=== PATIENT | female | born 1930 | race Caucasian/White ===

== ENCOUNTER 2016-08-26 10:58 | Emergency (ER) | payer OTHER, BC ==
[~2016-08-26] VITALS: Ht 167.6 cm; Wt 72.6 kg
--- NOTE | ~2016-08-26 | EKG ---
[address] [address] [place] [address] ELECTROCARDIOGRAM REPORT Name: CONCHIS UPTON [id number] Admission: 08/26/16 Attend Phys: Discharge: Date of : 28 Report #: [id number] THIS REPORT FOR: //name// 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: ryan : 1930 Requested By: Jeni Camarillo Order Number: [id number] MD: Nikhil Ruiz Measurements Intervals [place] Rate: 86 P: -46 NC: 194 QRS: -65 QRSD: 93 T: 71 QT: 393 QTc: 470 Interpretive Statements Sinus rhythm Atrial premature complexes Left anterior fascicular block Low voltage, extremity and precordial leads Electronically Signed On 08-26-2016 13:09:08 STRETCHER LEVELER OPERATOR HELPER by Nikhil Ruiz [email or web address] <ELECTRONICALLY SIGNED> By: Nikhil Ruiz MD 08/26/16 1309 1118 1118 Nikhil Ruiz MD /DENNY
[~2016-08-26 10:58] MED LIST: ASPIR 8181 MG PO; CEFUROXIME250 MG PO; DARVOCET-N 1001 EACH PO; MULTIVITAMINS1 EAC7 PO; OXYBUTYNIN 5 MG5 M2 PO; SEROQUEL 25 MG25 M1 PO
[2016-08-26] MEDS ORDERED: TRAMADOL 50 MG50 MG PO (11:04)
[2016-08-26] MEDS ORDERED: MYRBETRIQ25 MG PO (11:07)
[2016-08-26] MEDS ORDERED: IRON325 PO (11:08)
[2016-08-26] MEDS ORDERED: CLARITIN10 MG PO (11:08)
[2016-08-26] MEDS ORDERED: PRILOSEC 20 MG20 MG PO (11:08)
[2016-08-26] MEDS ORDERED: KEFLEX500 MG PO (11:08)
[2016-08-26] MEDS ORDERED: MAPAP325 MG PO (11:09)
[2016-08-26] MEDS ORDERED: ATIVAN0.5 MG PO (11:09)
[2016-08-26 11:27] LABS: ABSOLUTE NEUTROPHILS 4.8 thou/uL (1.4-8.2); BASOPHILS 0.9 % (0.0-2.0); EOSINOPHILS 1.8 % (0.0-3.0); HEMOGLOBIN 12.7 gm/dL (12.0-15.0); LYMPHOCYTES 22.7 % (24.0-44.0); MCH 29.4 pg (26.0-34.0); MCHC 33.6 % (28.0-37.0); MCV 87.6 fL (80.0-100.0); MONOCYTES 11.9 % (1.0-8.0); PLATELET COUNT 309 thou/uL (150-400); POLYS 62.7 % (36.0-66.0); RBC 4.33 mil/uL (4.20-5.00); RDW 15.1 % (10.5-14.5); WBC 7.7 thou/uL (4.0-11.0)
[2016-08-26 11:33] LABS: MANUAL DIFF NO
[2016-08-26 11:35] LABS: ANION GAP 9 mmol/L (7-16); BUN 16 mg/dL (7-18); CALCIUM 8.4 mg/dL (8.5-10.1); CHLORIDE 104 mmol/L (98-107); CO2 27 mmol/L (21-32); CREATININE 1.1 mg/dL (0.6-1.3); GLUCOSE 100 mg/dL (70-99); POTASSIUM 3.5 mmol/L (3.5-5.1); SODIUM 140 mmol/L (136-145)
[2016-08-26 11:41] LABS: TROPONIN-I < 0.04 ng/mL (<0.04-0.07)
[2016-09-18] MEDS ORDERED: TOPROL XL25 MG PO (02:45)
[2016-09-19] MEDS ORDERED: ATENOLOL 25MG T25 M1 PO (08:49)
[2016-09-19] MEDS ORDERED: ASPIR 8181 MG PO (08:50)
== END 2016-08-26 13:21 | disposition home or self-care (01) ==
LOC: ER 10:58
PROVIDERS: Emergency Medicine
DX: S09.90XA Unspecified injury of head, initial encounter (principal); F03.90 Unspecified dementia, unspecified severity, without behavioral disturbance, psychotic disturbance, mood disturbance, and anxiety; W17.89XA Other fall from one level to another, initial encounter; Y93.9 Activity, unspecified; Y92.9 Unspecified place or not applicable; Y99.9 Unspecified external cause status

== ENCOUNTER 2017-03-17 11:24 | Emergency (ER) | payer OTHER, BC ==
[~2017-03-17] VITALS: Ht 160 cm; Wt 67.0 kg
[~2017-03-17 11:24] MED LIST changes: +ATENOLOL 25MG T25 M1 PO; +ATIVAN0.5 MG PO; +CLARITIN10 MG PO; +IRON325 PO; +KEFLEX500 MG PO; +MAPAP325 MG PO; +MYRBETRIQ25 MG PO; +PRILOSEC 20 MG20 MG PO; +TOPROL XL25 MG PO; +TRAMADOL 50 MG50 MG PO
[2017-03-17] MEDS ORDERED: ZOLOFT25 MG PO (11:49)
== END 2017-03-17 13:03 | disposition home or self-care (01) ==
LOC: ER 11:24
DX: M25.562 Pain in left knee (principal); F03.90 Unspecified dementia, unspecified severity, without behavioral disturbance, psychotic disturbance, mood disturbance, and anxiety

== ENCOUNTER 2017-08-24 17:01 | Emergency (ER) | payer OTHER ==
[~2017-08-24] VITALS: Ht 162.6 cm; Wt 68.0 kg
[2017-08-24 17:01] VITALS: BP 167/63
[~2017-08-24 17:01] MED LIST changes: +ZOLOFT25 MG PO
== END 2017-08-24 18:01 | disposition home or self-care (01) ==
LOC: ER 17:01
DX: M25.561 Pain in right knee (principal); F03.90 Unspecified dementia, unspecified severity, without behavioral disturbance, psychotic disturbance, mood disturbance, and anxiety; Z98.890 Other specified postprocedural states

== ENCOUNTER 2017-08-30 17:40 | Emergency (ER) | payer OTHER ==
[~2017-08-30] VITALS: Ht 162.6 cm; Wt 63.5 kg
--- NOTE | ~2017-08-30 | EKG ---
[address] [address] ELECTROCARDIOGRAM REPORT Name: CONCHIS UPTON 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
[2017-08-30 19:09] VITALS: BP 166/44
== END 2017-08-30 19:10 ==
LOC: ER 17:40
DX: F41.0 Panic disorder [episodic paroxysmal anxiety] (principal); F03.90 Unspecified dementia, unspecified severity, without behavioral disturbance, psychotic disturbance, mood disturbance, and anxiety; Z90.49 Acquired absence of other specified parts of digestive tract

== ENCOUNTER 2017-11-14 18:48 | Inpatient (IN) | payer OTHER ==
[~2017-11-14] VITALS: Ht 152.4 cm; Wt 59.0 kg
--- NOTE | ~2017-11-14 | EKG ---
[address] [address] ELECTROCARDIOGRAM REPORT Name: CONCHIS UPTON Room #: 411-P ADM IN M.R.#: [id number] Admission: 11/14/17 Attend Phys: Giuseppe Burr MD Discharge: Date of : 29 Report #: [id number] THIS REPORT FOR: //name// [facility] ED Test Date: 2017-11-14 Test Time: 18:57:28 Pat Name: CONCHIS UPTON Department: Room: 411 Gender: F Free Lance Model: : 1930 Requested By: Eyad Villatoro Order Number: [id number] MD: Nikhil Ruiz Measurements Intervals [place] Rate: 64 P: -36 CT: 238 QRS: -45 QRSD: 84 T: 14 QT: 433 QTc: 447 Interpretive Statements Sinus rhythm Prolonged CT interval Abnormal R-wave progression, late transition Inferior infarct, old Compared to ECG 08/30/2017 18:00:41 Myocardial infarct finding now present Electronically Signed On 11-15-2017 17:07:47 CDT by Nikhil Ruiz [email or web address] <ELECTRONICALLY SIGNED> By: Nikhil Ruiz MD 11/15/17 1707 56 56 Nikhil Ruiz MD /EPI
--- NOTE | ~2017-11-14 | 2DMMODE ---
[facility] [address] [place] [address] 2 D/M-MODE ECHOCARDIOGRAM Name: CONCHIS UPTON Room #: 226-P ADM IN M.R.#: [id number] Admission: 11/14/17 Attend Phys: Giuseppe Burr MD Discharge: Date of : 29 Date of Service: 11/16/17 1436 Report #: [id number] THIS REPORT FOR: //name// APPROVED REPORT Study performed: 11/16/2017 12:59:57 EXAM: Comprehensive 2D, Doppler, and color-flow Echocardiogram Patient Location: Bedside Room #: 411 Status: routine BSA: 1.55 HR: 69 bpm BP: 141/59 mmHg Rhythm: NSR Other Information Study Quality: Adequate Technically limited study due to no patient cooperation.. Indications Syncope. 2D Dimensions RVDd: 28.98 mm LVEF(%): 75.30 (>50%) IVSd: 10.49 (7-11mm) LVOT Diam: 20.28 (18-24mm) LVDd: 40.29 mm PWd: 9.57 (7-11mm) LVDs: 22.73 (25-40mm) Aortic Root: 31.52 mm Jean Baptiste's LVEF: 75.30 % Volumes Left Atrial Volume (Systole) Single Plane 4CH: 32.72 mL Single Plane 2CH: 50.06 mL LA ESV Index: 28.00 mL/m2 Aortic Valve AoV Peak Michele.: 1.56 m/s AO Peak Gr.: 9.74 mmHg LVOT Max P.15 mmHg LVOT Max V: 1.02 m/s FLORENCIA Vmax: 2.11 cm2 AI Vmax: 4.62 m/s AI [place]: 3.12 m/s2 [facility] [address] [address] 2 D/M-MODE [facility]ARDIOGRAM [facility] IN .R.#: [id number] Admission: 11/14/17 Attend Phys: Giuseppe Burr MD Discharge: Date of : 29 Date of Service: 11/16/17 1436 Report #: [id number] AI PHT: 431.76 ms Mitral Valve E/A Ratio: 1.2 MV Decel. Time: 181.84 ms MV E Max Michele.: 1.12 m/s MV A Michele.: 0.90 m/s MV PHT: 52.73 ms IVRT: 55.36 ms Pulmonary Vein P Vein S: 0.59 m/s P Vein D: 0.34 m/s P Vein S/D Ratio: 1.74 Tricuspid Valve TR Peak Michele.: 2.67 m/s RAP Estimate: 5.00 mmHg TR Peak Gr.: 28.58 mmHg PA Pressure: 34.00 mmHg Left Ventricle The left ventricle is normal size. There is normal LV segmental wall motion. There is normal left ventricular wall thickness. The left ventricular systolic function is normal. LVEF is 60-65%. Right Ventricle The right ventricle is normal size. The right ventricular systolic function is normal. Atria The left atrium size is normal. The right atrium size is normal. Aortic Valve Aortic valve is calcified. Mild to moderate aortic regurgitation. There is no aortic valvular stenosis. Mitral Valve Mild mitral annular calcification Mitral valve leaflets are thickened. Trace to mild mitral regurgitation. Tricuspid Valve The tricuspid valve is normal in structure. Trace to mild tricuspid regurgitation. Estimated PAP is 35mmHg. Pulmonic Valve [facility] [address] [place] [address] 2 D/M-MODE ECHOCARDIOGRAM Name: CONCHIS UPTON Room #: 226-P [facility] IN M.R.#: [id number] Admission: 11/14/17 Attend Phys: Giuseppe Burr MD Discharge: Date of : 29 Date of Service: 11/16/17 1436 Report #: [id number] The pulmonary valve is normal in structure. Trace pulmonic regurgitation. Great Vessels The aortic root is normal in size. The ascending aorta is normal in size. IVC is normal in size and collapses >50% with inspiration. Pericardium There is no pericardial effusion. <Conclusion> The left ventricular systolic function is normal. There is normal LV segmental wall motion. LVEF 60-65%. Aortic valve is calcified. Mild to moderate aortic regurgitation, no stenosis. Mild mitral annular calcification. Mitral valve leaflets are thickened. Trace to mild mitral regurgitation. Trace to mild tricuspid regurgitation. Estimated pulmonary artery pressure of 35mmHg. There is no pericardial effusion. <ELECTRONICALLY SIGNED> By: Jermain Sosa MD, [facility] 11/16/17 1436 1436 1436 Jermain Sosa MD, FACC /INF
[2017-11-14 18:49] VITALS: BP 135/47
[2017-11-14 19:16] LABS: URINE BILIRUBIN NEGATIVE (Negative); URINE BLOOD 2+ (Negative); URINE COLOR YELLOW; URINE GLUCOSE-RANDOM* NEGATIVE (Negative); URINE KETONES TRACE (Negative); URINE PROTEIN (DIPSTICK) NEGATIVE (Negative); URINE SPECIFIC GRAVITY >= 1.030 (1.005-1.035); URINE UROBILINOGEN 0.2 E.U./dl (0.2-1.0)
[2017-11-14 19:27] LABS: URINE LEUKOCYTES-REFLEX TRACE (Negative); URINE NITRITE-REFLEX POSITIVE (Negative)
[2017-11-14 19:28] LABS: URINE CLARITY SL HAZY
[2017-11-14 19:33] LABS: BACTERIA-REFLEX >30 Many /HPF (None Seen); CASTS None Seen /LPF (None Seen); CRYSTALS None Seen /LPF (None Seen); SQUAMOUS 0-3 Few /LPF (0-3); URINE RBC 3-10 Few /HPF (0-2); URINE WBC-REFLEX 6-15 Few /HPF (0-5)
[2017-11-14 19:39] LABS: HEMATOCRIT 39.3 % (37.0-47.0); HEMOGLOBIN 13.2 gm/dL (12.0-15.0); MCH 30.8 pg (26.0-34.0); MCHC 33.7 g/dL (28.0-37.0); MCV 91.3 fL (80.0-100.0); RBC 4.3 mil/uL (4.20-5.00); RDW 13.1 % (10.5-14.5); WBC 8.9 thou/uL (4.0-11.0)
[2017-11-14 19:46] LABS: ANION GAP 9 mmol/L (7-16); BUN 29 mg/dL (7-18); CALCIUM 8.7 mg/dL (8.5-10.1); CHLORIDE 108 mmol/L (98-107); CO2 23 mmol/L (21-32); CREATININE 1.4 mg/dL (0.6-1.0); GLUCOSE 96 mg/dL (74-106); POTASSIUM 4.1 mmol/L (3.5-5.1); SODIUM 140 mmol/L (136-145)
[2017-11-14 19:55] LABS: TROPONIN-I < 0.04 ng/mL (<0.06)
[2017-11-14] MEDS ORDERED: ZOLOFT25 MG PO (21:16)
[2017-11-14 21:36] VITALS: BP 146/64
[2017-11-15 02:20] VITALS: BP 146/64
[2017-11-15 04:35] VITALS: BP 175/58
[2017-11-15 07:43] VITALS: BP 168/71
[2017-11-15 17:47] VITALS: BP 146/65
[2017-11-15 18:00] VITALS: BP 146/65; BP 168/68
[2017-11-15 19:28] VITALS: BP 150/67
[2017-11-16 05:53] VITALS: BP 162/58
[2017-11-16 06:34] LABS: ABSOLUTE NEUTROPHILS 7.1 thou/uL (1.4-8.2); BASOPHILS 0.8 % (0.0-2.0); HEMATOCRIT 37.8 % (37.0-47.0); HEMOGLOBIN 13.2 gm/dL (12.0-15.0); LYMPHOCYTES 21.2 % (24.0-44.0); MCH 31.1 pg (26.0-34.0); MCHC 34.8 g/dL (28.0-37.0); MCV 89.2 fL (80.0-100.0); MONOCYTES 7.7 % (1.0-8.0); PLATELET COUNT 223 thou/uL (150-400); POLYS 68.3 % (36.0-66.0); RBC 4.24 mil/uL (4.20-5.00); RDW 13.1 % (10.5-14.5); WBC 10.4 thou/uL (4.0-11.0)
[2017-11-16 06:42] LABS: CALCIUM 8.5 mg/dL (8.5-10.1); CREATININE 1.2 mg/dL (0.6-1.0); POTASSIUM 4.1 mmol/L (3.5-5.1)
[2017-11-16 07:30] VITALS: BP 141/59
[2017-11-16 19:49] VITALS: BP 165/71
[2017-11-17 07:15] VITALS: BP 145/61
[2017-11-17 07:30] LABS: BASOPHILS 0.8 % (0.0-2.0); EOSINOPHILS 2.2 % (0.0-3.0); HEMOGLOBIN 12.8 gm/dL (12.0-15.0); LYMPHOCYTES 25.2 % (24.0-44.0); MCH 30.7 pg (26.0-34.0); MCHC 33.8 g/dL (28.0-37.0); MONOCYTES 8.6 % (1.0-8.0); PLATELET COUNT 229 thou/uL (150-400); POLYS 63.2 % (36.0-66.0); RBC 4.18 mil/uL (4.20-5.00); RDW 13.1 % (10.5-14.5); WBC 7.9 thou/uL (4.0-11.0)
[2017-11-17 07:48] LABS: ALBUMIN 2.8 g/dL (3.4-5.0); CALCIUM 8.3 mg/dL (8.5-10.1); CREATININE 1.2 mg/dL (0.6-1.0); MAGNESIUM 1.8 mg/dL (1.8-2.4); POTASSIUM 3.8 mmol/L (3.5-5.1); TOTAL BILIRUBIN 0.4 mg/dL (<0.1-1.0); TOTAL PROTEIN 6.1 g/dL (6.4-8.2)
[2017-11-17 12:07] VITALS: BP 145/61
[2017-11-17] MEDS ORDERED: AUGMENTIN 500-1 EACH PO (12:58)
== END 2017-11-17 15:05 | disposition home health service (06) | DRG 70 ==
LOC: ER 18:48 → 4N 20:48 → EROBS 20:48 → 4N 21:20 → SICU 11-16 14:34 → ENTRNSPT 11-17 14:51 → EDTRNSPTSTS 11-17 15:00 → SICU 11-17 15:05
PROVIDERS: Emergency Medicine; Hospitalist; Registered Nurse
PROC: B24BZZ4 Ultrasonography of Heart with Aorta, Transesophageal (ICD-10-PCS; principal; 2017-11-16)
DX: G93.40 Encephalopathy, unspecified (principal); E43 Unspecified severe protein-calorie malnutrition; N39.0 Urinary tract infection, site not specified; F03.90 Unspecified dementia, unspecified severity, without behavioral disturbance, psychotic disturbance, mood disturbance, and anxiety; N18.3 Chronic kidney disease, stage 3 (moderate); I12.9 Hypertensive chronic kidney disease with stage 1 through stage 4 chronic kidney disease, or unspecified chronic kidney disease; E86.0 Dehydration; M62.84 Sarcopenia; Z90.710 Acquired absence of both cervix and uterus; Z90.79 Acquired absence of other genital organ(s); Z90.722 Acquired absence of ovaries, bilateral; Z90.49 Acquired absence of other specified parts of digestive tract; Z79.899 Other long term (current) drug therapy; Z80.8 Family history of malignant neoplasm of other organs or systems
CPT/HCPCS: 10790; 15001

== ENCOUNTER 2018-02-28 14:19 | Emergency (ER) | payer OTHER ==
[~2018-02-28] VITALS: Ht 160 cm; Wt 68.0 kg
--- NOTE | ~2018-02-28 | EKG ---
[address] [address] [place] [address] ELECTROCARDIOGRAM REPORT Name: CONCHIS UPTON 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 03/01/18 0830 1435 1435 Jermain Sosa MD, [facility] /EPI
[~2018-02-28 14:19] MED LIST changes: +AUGMENTIN 500-1 EACH PO
[2018-02-28 15:03] LABS: ABSOLUTE NEUTROPHILS 5.4 thou/uL (1.4-8.2); BASOPHILS 1.2 % (0.0-2.0); EOSINOPHILS 2.9 % (0.0-3.0); HEMATOCRIT 38.7 % (37.0-47.0); HEMOGLOBIN 13.1 gm/dL (12.0-15.0); LYMPHOCYTES 20.8 % (24.0-44.0); MCH 30.2 pg (26.0-34.0); MCHC 33.9 g/dL (28.0-37.0); MCV 89.2 fL (80.0-100.0); MONOCYTES 7.2 % (1.0-8.0); PLATELET COUNT 193 thou/uL (150-400); POLYS 67.9 % (36.0-66.0); RBC 4.34 mil/uL (4.20-5.00); RDW 13.1 % (10.5-14.5); WBC 7.9 thou/uL (4.0-11.0)
[2018-02-28 15:10] LABS: ANION GAP 9 mmol/L (7-16); BUN 19 mg/dL (7-18); CALCIUM 8.2 mg/dL (8.5-10.1); CHLORIDE 105 mmol/L (98-107); CO2 25 mmol/L (21-32); CREATININE 1.4 mg/dL (0.6-1.0); GLUCOSE 94 mg/dL (74-106); POTASSIUM 4.1 mmol/L (3.5-5.1); SODIUM 139 mmol/L (136-145)
[2018-02-28 15:19] LABS: ALBUMIN 3.1 g/dL (3.4-5.0); DIRECT BILIRUBIN < 0.1 mg/dL (<0.1-0.3); LIPASE 204 U/L (73-393); SGOT 19 U/L (15-37); SGPT 15 U/L (30-65); TOTAL BILIRUBIN 0.3 mg/dL (<0.1-1.0); TOTAL PROTEIN 6.4 g/dL (6.4-8.2); TROPONIN-I <0.06 ng/mL (<0.06)
== END 2018-02-28 16:30 | disposition left against medical advice (07) ==
LOC: ER 14:19
PROVIDERS: Emergency Medicine
DX: R55 Syncope and collapse (principal); F03.90 Unspecified dementia, unspecified severity, without behavioral disturbance, psychotic disturbance, mood disturbance, and anxiety; N39.0 Urinary tract infection, site not specified; I10 Essential (primary) hypertension; Z90.89 Acquired absence of other organs

== ENCOUNTER 2018-03-22 15:41 | Inpatient (IN) | payer OTHER ==
[~2018-03-22] VITALS: Ht 154.9 cm; Wt 59.0 kg
--- NOTE | ~2018-03-22 | 2DMMODE ---
[facility] [address] [employer] [facility] [place] [address] 2 D/M-MODE ECHOCARDIOGRAM Name: WONCONCHIS Room #: 202-P [facility] IN ..#: [id number] Admission: 03/22/18 Attend Phys: Omar Santoro MD Discharge: Date of : 29 Date of Service: 03/24/18 1001 Report #: [id number] THIS REPORT FOR: //name// APPROVED REPORT Study performed: 03/24/2018 08:54:28 EXAM: Comprehensive 2D, Doppler, and color-flow Echocardiogram Patient Location: Bedside Room #: 202 Status: routine BSA: 1.57 HR: 66 bpm BP: 184/74 mmHg Other Information Study Quality: Technically Limited Technically limited study due to uncooperative patient, inability to position patient. Indications Syncope Chest Pain Hypertension/HDD 2D Dimensions RVDd: 27.01 mm LVEF(%): 64.36 (>50%) IVSd: 10.83 (7-11mm) LVOT Diam: 18.86 (18-24mm) LVDd: 31.61 mm PWd: 11.63 (7-11mm) LVDs: 20.87 (25-40mm) Aortic Root: 31.19 mm IVC: 15.00 mm Jean Baptiste's LVEF: 64.36 % Volumes Left Atrial Volume (Systole) Single Plane 4CH: 30.83 mL Single Plane 2CH: 44.32 mL LA ESV Index: 25.00 mL/m2 Aortic Valve AoV Peak Michele.: 1.17 m/s AO Peak Gr.: 5.49 mmHg LVOT Max P.29 mmHg LVOT Max V: 0.91 m/s FLORENCIA Vmax: 2.16 cm2 AI Vmax: 4.51 m/s [facility] [place] [address] 2 D/M-MODE ECHOCARDIOGRAM Name: CONCHIS UPTON Room #: 202-P [facility] IN .R.#: [id number] Admission: 03/22/18 Attend Phys: Omar Santoro MD Discharge: Date of : 29 Date of Service: 03/24/18 1001 Report #: [id number] [place]: 2.95 m/s2 AI PHT: 443.56 ms Mitral Valve E/A Ratio: 0.9 MV Decel. Time: 230.67 ms MV E Max Michele.: 0.86 m/s MV A Michele.: 0.96 m/s MV PHT: 66.89 ms IVRT: 103.81 ms Pulmonary Vein P Vein S: 0.47 m/s P Vein A: 0.28 m/s P Vein D: 0.33 m/s P Vein A Dur.: 117.6 msec P Vein S/D Ratio: 1.42 Tricuspid Valve TR Peak Michele.: 2.75 m/s RAP Estimate: 5.00 mmHg TR Peak Gr.: 30.33 mmHg PA Pressure: 35.00 mmHg Left Ventricle The left ventricle is normal size. Mild concentric left ventricular hypertrophy. The left ventricular systolic function is normal. The left ventricular ejection fraction is within the normal range. LVEF is 60%. Mild diastolic dysfunction is present (impaired relaxation pattern). Right Ventricle The right ventricle is normal size. The right ventricular systolic function is normal. Atria The left atrium size is normal. The right atrium size is normal. Aortic Valve The aortic valve is normal in structure. Mild aortic regurgitation. There is no aortic valvular stenosis. Mitral Valve Mild mitral annular calcification. Trace mitral regurgitation. No evidence of mitral valve stenosis. Tricuspid Valve The tricuspid valve is normal in structure. Mild tricuspid [address] [address] 2 D/M-MODE ECHOCARDIOGRAM Name: CONCHIS UPTON Room #: 202-P [facility] IN [facility]#: [id number] Admission: 03/22/18 Attend Phys: Omar Santoro MD Discharge: Date of : 29 Date of Service: 03/24/18 1001 Report #: [id number] regurgitation. PAP is estimated at 35 mmHg. Pulmonic Valve Pulmonic valve is not well visualized. Great Vessels The aortic root is normal in size. IVC is normal in size and collapses >50% with inspiration. Pericardium There is no pericardial effusion. <Conclusion> The left ventricle is normal size. Mild concentric left ventricular hypertrophy. The left ventricular systolic function is normal. Mild diastolic dysfunction is present (impaired relaxation pattern). The right ventricle is normal size. The left atrium size is normal. Mild aortic regurgitation. Trace mitral regurgitation. Mild tricuspid regurgitation. PAP is estimated at 35 mmHg. <ELECTRONICALLY SIGNED> By: Td Marcelo MD 03/24/18 1001 1001 1001 Td Marcelo MD /INF
--- NOTE | ~2018-03-22 | EKG ---
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 : 1930 Requested By: Jonathon Bee Order Number: [id number] MD: Jermain Sosa Measurements Intervals [place] Rate: 61 P: 98 LA: 242 QRS: 106 QRSD: 87 T: 60 QT: 469 QTc: 473 Interpretive Statements Sinus rhythm Prolonged LA interval Right axis deviation Baseline wander in lead(s) V1 Compared to ECG 02/28/2018 14:35:28 Right-axis deviation now present Myocardial infarct finding no longer present Electronically Signed On 03-22-2018 16:59:25 CDT by Jermain Sosa [email or web address] <ELECTRONICALLY SIGNED> By: Jermain Sosa MD, [facility] 03/22/18 1659 1626 25 Jermain Sosa MD, [facility] /EPI
--- NOTE | ~2018-03-22 | P ---
[facility] [place] [address] PROCEDURE REPORT Name: CONCHIS UPTON Room #: 202-P [facility] IN M.R.#: [id number] Admission: 03/22/18 Attend Phys: Omar Santoro MD Discharge: 03/25/18 Date of : 29 Report #: [id number] THIS REPORT FOR: //name// CC: Omar Marroquin DATE OF SERVICE: 03/25/2018 INPATIENT UPPER ENDOSCOPY REPORT BRIEF HISTORY: The patient is an 87-year-old woman with black stools, which are likely related to iron. Her stools are Hemoccult negative; however, she has had abdominal pain as well as vomiting. PREOPERATIVE DIAGNOSIS: Abdominal pain and vomiting. POSTOPERATIVE DIAGNOSES: 1. Moderate diffuse gastritis. 2. Small hiatus hernia. 3. Schatzki ring. MEDICATIONS: Deep sedation with propofol per anesthesia. SPECIMEN: Biopsies of gastritis. ESTIMATED BLOOD LOSS: 3 mL PROCEDURE: Esophagogastroduodenoscopy with biopsy and Alexis dilation. FINDINGS: With the patient in left decubitus position, the Olympus video endoscope was inserted in the cervical esophagus under direct vision without difficulty. Examination of this organ throughout its entire length revealed normal esophageal mucosa throughout the esophagus down the squamocolumnar junction. The squamocolumnar junction was inspected. The mucosa was intact and unremarkable. There was no evidence of ulcers, erosions or Olea mucosa; however, a moderate Schatzki ring was seen. It is possible that the patient may be having intermittent food bolus obstruction in the esophagus with subsequent vomiting. The scope did pass easily into small hiatus hernia. Mucosa and hernia was normal. There were no retained solids or liquids within the hernia. The scope was advanced fully into the stomach, was examined on end view as well as retroflexed views. There was a pattern of a moderate diffuse gastritis. No ulcers or erosions were seen. Upon retroflexion, no mass lesions were seen. The pylorus, duodenal bulb, and postbulbar sweep were all inspected and noted to be within normal limits. At that point, the scope was slowly withdrawn and [facility] [address] [place] [address] PROCEDURE REPORT Name: CONCHIS UPTON Omayra Room #: 202-P DIS IN M.R.#: [id number] Admission: 03/22/18 Attend Phys: Omar Santoro MD Discharge: 03/25/18 Date of : 29 Report #: [id number] careful circumferential views confirmed the above findings. The patient tolerated the procedure well. Due to the vomiting and the findings of her ring, her ring was dilated with passage of 50-Greenlandic Alexis dilator without resistance. DISPOSITION: Findings as noted above. We will follow up on the biopsies obtained today. In the meantime, we will treat with a proton pump inhibitor. By: 1230 2242 Terrance Duque MD /nt
--- NOTE | ~2018-03-22 | HC ---
[facility] [place] [address] CONSULTATION Name: CONCHIS UPTON Room #: 202-P [facility] IN .R.#: [id number] Admission: 03/22/18 Attend Phys: Omar Santoro MD Discharge: Date of : 29 Report #: [id number] THIS REPORT FOR: //name// CC: Omar Marroquin DATE OF SERVICE: 03/23/2018 CARDIOLOGY CONSULTATION INDICATION: Syncope. HISTORY OF PRESENT ILLNESS: This is an 87-year-old female, with a past medical history of dementia, SVT, gait instability, hypertension, UTI, presenting with an episode of syncope. The patient resides at the [facility]. The patient is a poor historian, the history is obtained from her medical records. She was talking to a nurse at her residence when she apparently passed out. She was noted to have a heart rate in the 30 beats per minute range and she was transferred to [facility]. She was recently here for an episode of a fall, diagnosed with dehydration and UTI. The patient cannot recall any details surrounding her episode of syncope. She uses a walker for assistance with ambulation. There is no apparent history of angina or dyspnea. PAST MEDICAL HISTORY: Hypertension, SVT, dementia, gait instability. ALLERGIES: None. MEDICATIONS AT HOME: Include iron tablets, Zoloft, atenolol 25 mg twice a day, aspirin 81 mg daily. SOCIAL HISTORY: Negative for tobacco use. FAMILY HISTORY: Unobtainable. REVIEW OF SYSTEMS: Unobtainable. PHYSICAL EXAMINATION: VITAL SIGNS: Blood pressure is 140/60, heart rate is 66 beats per minute. GENERAL APPEARANCE: This is an elderly appearing female, in no acute distress. HEENT: Normocephalic. Sclerae are anicteric. ENT: Oral mucosa moist. NECK: Supple. LUNGS: Clear to auscultation. CARDIAC: Regular rate and rhythm, S1, S2 positive. ABDOMEN: Soft, nontender. [facility] [address] [place] [address] CONSULTATION Name: CONCHIS UPTON Room #: 202-[facility] IN [facility].#: [id number] Admission: 03/22/18 Attend Phys: Omar Santoro MD Discharge: Date of : 29 Report #: [id number] EXTREMITIES: Trace edema, no cyanosis. NEUROLOGIC: Alert, not oriented. LABORATORY VALUES: Troponin is negative. Hemoglobin is 12.7, creatinine is 1.3. ECG reveals sinus rhythm. ASSESSMENT AND PLAN: 1. Syncope. The etiology is unclear, may be vasovagal mediated versus orthostatic hypotension. We will need to check orthostatic blood pressure measurements. There is a question of bradycardia, we will hold the beta erasmo at this time. 2. Bradycardia, exacerbated with atenolol. We will hold for now. Continue telemetry. 3. Supraventricular tachycardia, stable with no recent episodes. 4. Dementia, continue with medications. <ELECTRONICALLY SIGNED> By: Td Marcelo MD 03/24/18 0758 1617 0554 Td Marcelo MD /nt
--- NOTE | ~2018-03-22 | PATH ---
[facility] [address] [place] [address] PATHOLOGY RPT PROCEDURE Name: CONCHIS TOWNSEND Omayra Room #: 202-P [facility] IN M.R.#: [id number] Admission: 03/22/18 Date of : 28 Discharge: 03/25/18 Report #: [id number] Path Case #: [id number] [facility] Accession Number: [id number] . 01 Material submitted: . BIOPSY OF GASTRITIS . 01 Clinical history: . Pre-Op DX: Nausea, dysphagia, abdominal pain Post-OP DX: Gastritis, hiatal hernia, Schatzki's ring . 02 Diagnosis: Gastric mucosa, gastritis, endoscopic biopsy: - Mild chronic active gastritis. - Negative for intestinal metaplasia or atrophy. - Negative for Helicobacter pylori (properly controlled immunohistochemical stain performed). (IUV:ck; 03/28/2018) QMS/03/28/2018 . 02 Electronically signed: . Marissa Montano MD, Pathologist NPI- [id number] . 01 Gross description: . Received in formalin labeled "Conchis Townsend, BX of gastritis," are 8 segments of cross soft tissue measuring 1.5 x 0.7 x 0.2 cm in aggregate dimensions and ranging from 0.1 to 0.5 cm in maximum dimension. The specimen is submitted entirely in cassette A1. (TSD; 03/25/2018) TOB/TOB . 02 Pathologist provided ICD-10: K29.50 . 02 CPT . 062086, H48869 Performed at: [address], [place] [id number] MD Yair Gonzalez MD Phone: [phone] Performed at: [address] [id number] MD Marissa Montano MD Phone: [phone]
[2018-03-22 15:47] VITALS: BP 133/37
[2018-03-22 16:27] LABS: BASOPHILS 0.6 % (0.0-2.0); EOSINOPHILS 0.7 % (0.0-3.0); HEMATOCRIT 41.4 % (37.0-47.0); HEMOGLOBIN 13.8 gm/dL (12.0-15.0); LYMPHOCYTES 16.8 % (24.0-44.0); MCH 30.1 pg (26.0-34.0); MCHC 33.4 g/dL (28.0-37.0); MCV 90.1 fL (80.0-100.0); MONOCYTES 4.4 % (1.0-8.0); PLATELET COUNT 167 thou/uL (150-400); POLYS 77.5 % (36.0-66.0); RBC 4.59 mil/uL (4.20-5.00); RDW 13.2 % (10.5-14.5); WBC 9.1 thou/uL (4.0-11.0)
[2018-03-22 16:38] LABS: ANION GAP 8 mmol/L (7-16); BUN 21 mg/dL (7-18); CALCIUM 8.7 mg/dL (8.5-10.1); CHLORIDE 104 mmol/L (98-107); CO2 24 mmol/L (21-32); CREATININE 1.6 mg/dL (0.6-1.0); GLUCOSE 107 mg/dL (74-106); SODIUM 136 mmol/L (136-145)
[2018-03-22 16:46] LABS: TROPONIN-I <0.06 ng/mL (<0.06)
[2018-03-22 17:34] LABS: URINE BLOOD 2+ (Negative); URINE CLARITY CLEAR; URINE COLOR YELLOW; URINE GLUCOSE-RANDOM* NEGATIVE (Negative); URINE KETONES 1+ (Negative); URINE LEUKOCYTES-REFLEX NEGATIVE (Negative); URINE NITRITE-REFLEX NEGATIVE (Negative); URINE PROTEIN (DIPSTICK) 1+ (Negative); URINE SPECIFIC GRAVITY >= 1.030 (1.005-1.035); URINE UROBILINOGEN 0.2 E.U./dl (0.2-1.0)
[2018-03-22 17:37] LABS: ICTOTEST (BILI CONFIRMATORY) Negative (Negative); URINE BILIRUBIN NEGATIVE (Negative)
[2018-03-22 17:47] LABS: HYALINE CASTS 0-3 Few /LPF (None Seen)
[2018-03-22 17:48] LABS: MUCUS 4-6 Moderate strn/LPF (None Seen); SQUAMOUS 0-3 Few /LPF (0-3)
[2018-03-22 17:49] LABS: BACTERIA-REFLEX 1-9 Few /HPF (None Seen); CRYSTALS None Seen /LPF (None Seen); URINE RBC 3-10 Few /HPF (0-2); URINE WBC-REFLEX 0-5 Rare /HPF (0-5)
[2018-03-22 18:31] VITALS: BP 136/85
[2018-03-22 20:45] VITALS: BP 146/95
[2018-03-23 00:12] VITALS: BP 133/56
[2018-03-23 05:08] LABS: HEMATOCRIT 36.7 % (37.0-47.0); HEMOGLOBIN 12.7 gm/dL (12.0-15.0); MCH 30.9 pg (26.0-34.0); MCHC 34.5 g/dL (28.0-37.0); MCV 89.4 fL (80.0-100.0); RBC 4.1 mil/uL (4.20-5.00); RDW 13.4 % (10.5-14.5); WBC 6.5 thou/uL (4.0-11.0)
[2018-03-23 05:18] LABS: CALCIUM 7.8 mg/dL (8.5-10.1); CREATININE 1.3 mg/dL (0.6-1.0); POTASSIUM 4.1 mmol/L (3.5-5.1)
[2018-03-23 07:10] VITALS: BP 148/57
[2018-03-23 11:25] VITALS: BP 143/52
[2018-03-23 13:25] LABS: HEMATOCRIT 38.9 % (37.0-47.0); HEMOGLOBIN 13.2 gm/dL (12.0-15.0)
[2018-03-23 15:35] VITALS: BP 146/57
[2018-03-23 17:24] LABS: % SATURATION 101 % (20-39); IRON 174 ug/dL (50-170); TIBC 173 ug/dL (250-450)
[2018-03-23 19:23] VITALS: BP 155/86
[2018-03-24 03:16] VITALS: BP 184/74
[2018-03-24 08:45] VITALS: BP 177/80
[2018-03-24 12:33] VITALS: BP 155/80
[2018-03-24 15:05] VITALS: BP 142/63
[2018-03-24 19:23] VITALS: BP 183/68
[2018-03-25 04:39] VITALS: BP 147/67
[2018-03-25 08:38] VITALS: BP 136/53
[2018-03-25] MEDS ORDERED: PROTONIX40 M1 PO (10:08)
[2018-03-25] MEDS ORDERED: AMLODIPINE BESYL5 M1 PO (10:08)
[2018-03-25 13:27] VITALS: BP 146/71
== END 2018-03-25 15:12 | DRG 308 ==
LOC: ER 15:41 → EROBS 17:14 → 2N 17:14 → ENTRNSPT 03-25 14:58 → EDTRNSPTSTS 03-25 15:05 → 2N 03-25 15:12
PROVIDERS: Hospitalist; Nurse Practitioner; Physician Assistant
DX: R00.1 Bradycardia, unspecified (principal); N17.0 Acute kidney failure with tubular necrosis; K92.1 Melena; N39.0 Urinary tract infection, site not specified; I47.1 Supraventricular tachycardia; F03.90 Unspecified dementia, unspecified severity, without behavioral disturbance, psychotic disturbance, mood disturbance, and anxiety; I10 Essential (primary) hypertension; K29.60 Other gastritis without bleeding; K44.9 Diaphragmatic hernia without obstruction or gangrene; K22.2 Esophageal obstruction; K21.9 Gastro-esophageal reflux disease without esophagitis; F41.9 Anxiety disorder, unspecified; M62.84 Sarcopenia; T44.7X5A Adverse effect of beta-adrenoreceptor antagonists, initial encounter; N32.81 Overactive bladder; F32.9 Major depressive disorder, single episode, unspecified; I44.0 Atrioventricular block, first degree; R68.81 Early satiety; Z90.722 Acquired absence of ovaries, bilateral; Z90.49 Acquired absence of other specified parts of digestive tract; Z79.899 Other long term (current) drug therapy; Z79.82 Long term (current) use of aspirin
CPT/HCPCS: 10081; 62110; 62900; 70005

== ENCOUNTER 2018-07-10 17:37 | Inpatient (IN) | payer OTHER ==
[~2018-07-10] VITALS: Ht 152.4 cm; Wt 57.2 kg
--- NOTE | ~2018-07-10 | EKG ---
[place] [address] [facility] [place] [address] ELECTROCARDIOGRAM REPORT Name: CONCHIS UPTON Room #: 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
--- NOTE | ~2018-07-10 | P ---
[facility] [place] [address] PROCEDURE REPORT Name: CONCHIS UPTON Room #: 462-P ADM IN M.R.#: [id number] Admission: 07/10/18 Attend Phys: Suresh Pagan MD Discharge: Date of : 28 Report #: [id number] THIS REPORT FOR: //name// CC: Awa Marroquin MD BRIEF HISTORY: The patient is an 87-year-old woman with coffee-ground emesis. Also CT reveals evidence of thickening of the distal esophagus. Preoperative diagnosis is hematemesis and possible dysphagia. She had a ring dilated 4 months ago. The patient has dementia. Daughter does report that at times when she swallows, she will hold her chest. PREOPERATIVE DIAGNOSIS: Hematemesis and possible dysphagia. POSTOPERATIVE DIAGNOSES: 1. Esophagitis and questionably small healing ulcer. 2. Irregularity of distal esophagus, inflammatory versus neoplastic. 3. A 4 cm sliding type hiatus hernia. 4. Diffuse gastritis. 5. Mild esophageal ring, distal esophagus. MEDICATIONS: Deep sedation with propofol per anesthesia. SPECIMEN: Biopsies of irregular mucosa at GE junction. ESTIMATED BLOOD LOSS: 3 mL. PROCEDURE: EGD with biopsy and balloon dilation of the distal esophagus. FINDINGS: Prior to propofol sedation, the procedure of upper endoscopy and dilation were discussed with the patient's daughter as well as potential risks and its complications. She indicates she understands and desires to proceed. DESCRIPTION OF PROCEDURE: With the patient in the left lateral decubitus position, the Visionnaire video endoscope was inserted in the cervical esophagus under direct vision without difficulty. Examination of this organ through its entire length revealed normal esophageal mucosa down to the squamocolumnar junction. At the squamocolumnar junction, there was a patch of what appeared to be exudate. This was washed away and much of it washed away, but a small amount was adherent. I believe this is a healing esophageal ulcer. It has a smooth benign appearance. In addition, there was a mild mucosal ring in the very distal esophagus. Also, there was a patch of irregular mucosa in the vicinity of what appeared to be the healing ulcer. This may be inflammatory; however, biopsies were obtained as well. The scope was advanced and a 4 cm sliding type hiatus hernia was encountered. The mucosa of the hernia was unremarkable. The scope was advanced in the stomach, which was examined on end view as well as [facility] [address] [place] [address] PROCEDURE REPORT Name: CONCHIS UTPON Room #: 462-P [facility] IN ..#: [id number] Admission: 07/10/18 Attend Phys: Suresh Pagan MD Discharge: Date of : 28 Report #: [id number] retroflexed views. There was a pattern of diffuse gastritis. No ulcers or erosions were seen. This has been noted in the past. Upon retroflexion, the hiatus hernia was seen. No other abnormalities were seen. In addition, I might point out there was no blood seen in the esophagus, stomach or duodenum. The pylorus, duodenal bulb and postbulbar duodenal sweep were inspected and noted to be unremarkable. At that point, the scope was slowly withdrawn and careful circumferential views confirmed the above findings. The patient tolerated the procedure well. As we withdrew the scope back into the esophagus, the ring was again seen. Due to possible dysphagia, she was dilated with a balloon dilator with 15, 16.5 and 18 mm without difficulty. The patient tolerated the procedure well. DISPOSITION: The patient with findings as noted above. At this point in time, we will follow up on biopsies. She is to return for dilation on as needed basis. As far as GI bleeding, I do not see evidence of significant ongoing bleeding. From a GI standpoint, I believe the risk of continued bleeding is low. From a GI standpoint, discharge would be reasonable. <ELECTRONICALLY SIGNED> By: Terrance Duque MD 07/12/18 1618 [id number] Terrance Duque MD /nt
[~2018-07-10 17:37] MED LIST changes: +AMLODIPINE BESYL5 M1 PO; +PROTONIX40 M1 PO
[2018-07-10 17:39] VITALS: BP 146/53
[2018-07-10 18:13] LABS: ABSOLUTE NEUTROPHILS 10.7 thou/uL (1.4-8.2); BASOPHILS 0.6 % (0.0-2.0); HEMATOCRIT 39.3 % (37.0-47.0); HEMOGLOBIN 13.1 gm/dL (12.0-15.0); LYMPHOCYTES 16.4 % (24.0-44.0); MCH 29.2 pg (26.0-34.0); MCHC 33.4 g/dL (28.0-37.0); MCV 87.4 fL (80.0-100.0); MONOCYTES 6.3 % (1.0-8.0); PLATELET COUNT 277 thou/uL (150-400); POLYS 76.7 % (36.0-66.0); RBC 4.49 mil/uL (4.20-5.00); RDW 13.8 % (10.5-14.5)
[2018-07-10 18:16] LABS: ANION GAP 11 mmol/L (7-16); BUN 26 mg/dL (7-18); CHLORIDE 102 mmol/L (98-107); CO2 26 mmol/L (21-32); CREATININE 1.2 mg/dL (0.6-1.0); GLUCOSE 101 mg/dL (74-106); POTASSIUM 3.1 mmol/L (3.5-5.1); SODIUM 139 mmol/L (136-145)
[2018-07-10 18:25] LABS: ALBUMIN 3.3 g/dL (3.4-5.0); LIPASE 90 U/L (73-393); SGOT 16 U/L (15-37); SGPT 13 U/L (30-65); TOTAL BILIRUBIN 0.7 mg/dL (<0.1-1.0); TOTAL PROTEIN 6.6 g/dL (6.4-8.2); TROPONIN-I <0.06 ng/mL (<0.06)
[2018-07-10 18:29] LABS: APTT 27.9 Seconds (24.5-32.8); PROTIME 10.7 Seconds (9.3-11.4)
[2018-07-10 19:54] LABS: URINE BILIRUBIN NEGATIVE (Negative); URINE BLOOD 2+ (Negative); URINE CLARITY CLOUDY; URINE COLOR YELLOW; URINE GLUCOSE-RANDOM* NEGATIVE (Negative); URINE KETONES TRACE (Negative); URINE PROTEIN (DIPSTICK) TRACE (Negative); URINE SPECIFIC GRAVITY 1.025 (1.005-1.035); URINE UROBILINOGEN 0.2 E.U./dl (0.2-1.0)
[2018-07-10 19:57] LABS: URINE LEUKOCYTES-REFLEX 3+ (Negative); URINE NITRITE-REFLEX POSITIVE (Negative)
[2018-07-10 19:59] LABS: CASTS None Seen /LPF (None Seen); SQUAMOUS None Seen /LPF (0-3); URINE RBC 3-10 Few /HPF (0-2); URINE WBC-REFLEX >25 Many /HPF (0-5)
[2018-07-10 20:00] LABS: BACTERIA-REFLEX >30 Many /HPF (None Seen); CRYSTALS None Seen /LPF (None Seen)
[2018-07-10 22:04] VITALS: BP 123/98
[2018-07-10 22:16] VITALS: BP 122/68
[2018-07-10 22:57] VITALS: BP 108/54
[2018-07-11] MEDS ORDERED: PEPCID20 MG PO (00:38)
[2018-07-11] MEDS ORDERED: SENNA8.6 MG PO (00:42)
[2018-07-11] MEDS ORDERED: FLOMAX0.4 MG PO (00:44)
[2018-07-11] MEDS ORDERED: VITAMIN D2000 UNIT PO (00:46)
[2018-07-11] MEDS ORDERED: EXELON1 EAC1 PO (00:49)
[2018-07-11] MEDS ORDERED: BUSPIRONE HCL10 MG PO (00:54)
[2018-07-11] MEDS ORDERED: ANTACID430 MG PO (00:58)
[2018-07-11] MEDS ORDERED: LORAZEPAM 0.50.5 M1 PO (01:08)
[2018-07-11] MEDS ORDERED: ONDANSETRON HCL4 M2 PO (01:10)
[2018-07-11] MEDS ORDERED: TYLENOL325 MG PO (01:11)
[2018-07-11] MEDS ORDERED: RIVASTIGMINE3 MG PO (01:42)
[2018-07-11 03:30] VITALS: BP 151/76
[2018-07-11 04:22] LABS: CALCIUM 8.3 mg/dL (8.5-10.1); CREATININE 1.1 mg/dL (0.6-1.0); POTASSIUM 3.4 mmol/L (3.5-5.1)
[2018-07-11 04:25] LABS: HEMATOCRIT 36.5 % (37.0-47.0); HEMOGLOBIN 12.1 gm/dL (12.0-15.0); MCH 29.7 pg (26.0-34.0); MCHC 33.2 g/dL (28.0-37.0); MCV 89.3 fL (80.0-100.0); RBC 4.09 mil/uL (4.20-5.00); RDW 14.3 % (10.5-14.5)
[2018-07-11 07:25] VITALS: BP 134/46
[2018-07-11 17:00] VITALS: BP 146/57
[2018-07-11 20:18] VITALS: BP 119/44
[2018-07-12 04:22] VITALS: BP 139/58
[2018-07-12 07:40] VITALS: BP 136/50
[2018-07-12] MEDS ORDERED: CIPRO250 M1 PO (12:58)
[2018-07-12 15:38] VITALS: BP 149/55
[2018-07-12 19:20] VITALS: BP 178/82
[2018-07-13 04:39] LABS: ALBUMIN 2.8 g/dL (3.4-5.0); CALCIUM 8.3 mg/dL (8.5-10.1); MAGNESIUM 1.7 mg/dL (1.8-2.4); TOTAL BILIRUBIN 0.5 mg/dL (<0.1-1.0); TOTAL PROTEIN 5.6 g/dL (6.4-8.2)
[2018-07-13 04:40] LABS: BASOPHILS 0.6 % (0.0-2.0); HEMATOCRIT 35.6 % (37.0-47.0); HEMOGLOBIN 12.1 gm/dL (12.0-15.0); LYMPHOCYTES 14.8 % (24.0-44.0); MCHC 33.8 g/dL (28.0-37.0); MCV 88.7 fL (80.0-100.0); MONOCYTES 7.4 % (1.0-8.0); PLATELET COUNT 209 thou/uL (150-400); POLYS 76.2 % (36.0-66.0); RBC 4.02 mil/uL (4.20-5.00); RDW 13.5 % (10.5-14.5); WBC 9.2 thou/uL (4.0-11.0)
[2018-07-13 05:53] VITALS: BP 153/77
[2018-07-13 07:53] VITALS: BP 124/45
[2018-07-13 09:22] VITALS: BP 124/45
== END 2018-07-13 11:42 | DRG 871 ==
LOC: ER 17:37 → EROBS 21:27 → 4W 21:27
PROVIDERS: Emergency Medicine; Internal Medicine; Nurse Practitioner Acute Care
PROC: 0DB58ZX Excision of Esophagus, Via Natural or Artificial Opening Endoscopic, Diagnostic (ICD-10-PCS; principal; 2018-07-11)
PROC: 0D758ZZ Dilation of Esophagus, Via Natural or Artificial Opening Endoscopic (ICD-10-PCS; principal; 2018-07-11)
DX: A41.9 Sepsis, unspecified organism (principal); K29.71 Gastritis, unspecified, with bleeding; K22.11 Ulcer of esophagus with bleeding; N39.0 Urinary tract infection, site not specified; E87.6 Hypokalemia; F03.90 Unspecified dementia, unspecified severity, without behavioral disturbance, psychotic disturbance, mood disturbance, and anxiety; Z66 Do not resuscitate; F32.9 Major depressive disorder, single episode, unspecified; F41.9 Anxiety disorder, unspecified; E55.9 Vitamin D deficiency, unspecified; K21.9 Gastro-esophageal reflux disease without esophagitis; N32.81 Overactive bladder; K44.9 Diaphragmatic hernia without obstruction or gangrene; K22.2 Esophageal obstruction; I10 Essential (primary) hypertension; Z90.79 Acquired absence of other genital organ(s); Z90.710 Acquired absence of both cervix and uterus; Z90.722 Acquired absence of ovaries, bilateral; Z79.82 Long term (current) use of aspirin; Z79.899 Other long term (current) drug therapy; Z80.8 Family history of malignant neoplasm of other organs or systems
CPT/HCPCS: 10045; 10047; 62110; 62900; 70005

== ENCOUNTER → 2019-01-26 | Outpatient (CLI) | payer OTHER ==
[~2019-01-26] VITALS: Ht 160 cm; Wt 54.4 kg
[~2019-01-26] MED LIST changes: +ANTACID430 MG PO; +BUSPIRONE HCL10 MG PO; +CIPRO250 M1 PO; +EXELON1 EAC1 PO; +FLOMAX0.4 MG PO; +LORAZEPAM 0.50.5 M1 PO; +NORVASC5 MG PO; +ONDANSETRON HCL4 M2 PO; +PEPCID20 MG PO; +RIVASTIGMINE3 MG PO; +SENNA8.6 MG PO; +TYLENOL325 MG PO; +VITAMIN D2000 UNIT PO; +ZANTAC 150MG T150 MG PO
[2019-01-26 10:03] LABS: BE(vivo) -1.1 mmol/L (-2 to +3); HCO3 24.9 mmol/L (22.0-26.0); PCO2 46.2 mmHg (35.0-45.0); PO2 108.3 mmHg (80.0-100.0); pH 7.349 (7.360-7.450); sO2 97.7 % (92.0-98.0)
--- NOTE | 2019-01-27 16:39 | P ---
[facility] [place] [address] PROCEDURE REPORT Name: CONCHIS UPTON Room #: REG [facility]#: [id number] Admission: 01/26/19 ������������������ Attend Phys: Terrance Duque MD Discharge: ������������������ Date of : 28 Report #: [id number] THIS REPORT FOR: //name// CC: Terrance Marino MD OUTPATIENT UPPER ENDOSCOPY NOTE BRIEF HISTORY: The patient is an 88-year-old woman with recurrent nausea and vomiting. She has a history of an esophageal ulcer, esophagitis and an esophageal ring. She was last scoped about 6-8 months ago and improved, but recently, is having more problems including spontaneous vomiting. PREOPERATIVE DIAGNOSES: History of esophageal ulcer and recurrent vomiting. POSTOPERATIVE DIAGNOSES: 1. Grade B erosive esophagitis. 2. A 4-cm sliding hiatus hernia. 3. Mild Schatzki ring. MEDICATIONS: Deep sedation with propofol per Anesthesia. SPECIMEN: None. ESTIMATED BLOOD LOSS: None. PROCEDURE: EGD. FINDINGS: Prior to propofol sedation, the procedure of upper endoscopy was discussed with her daughter. She indicates she understands and desires that we proceed. DESCRIPTION OF PROCEDURE: With the patient in the left lateral decubitus position, the Olympus video endoscope was inserted into the cervical esophagus under direct vision without difficulty. Examination of this organ through its entire length revealed normal esophageal mucosa down to the squamocolumnar junction. Squamocolumnar junction was inspected and was noted to be intact. There is a mild ring. A tight stricture was not seen. There were multiple erosions in the distal esophagus, suggestive of reflux. The scope was advanced and she again has an approximately 4 cm sliding-type hiatus hernia. The scope was advanced in the stomach and she was noted to have diffuse gastritis, which has been previously noted. The pylorus was normal. Duodenal bulb was normal. At this point, the patient began to desaturate and the procedure was terminated. She required bag mask ventilation. Plans were underway to intubate the patient due to hypoxia and she started to spontaneously recover and intubation was not needed. It was felt that although the procedure was quite contrived, adequate [facility] [address] [place] [address] PROCEDURE REPORT Name: CONCHIS UPTON Room #: REG [facility].#: [id number] Admission: 01/26/19 ������������������ Attend Phys: Terrance Duque MD Discharge: ������������������ Date of : 28 Report #: [id number] information had been obtained and plans were not to further sedate and continue with endoscopic evaluation. DISPOSITION: Unfortunate situation of the patient with advanced dementia with recurrent vomiting. Symptomatically, she had improved for a period of time, but is having more problems. She clearly does have esophagitis. This may be related to reflux. It could be related to vomiting as well. She does have significant hiatus hernia. Unfortunately, with all things considered, she is not likely a candidate for surgical repair of her hiatus hernia. We will try to treat symptomatically. We will place her back on a PPI. She had been switched from PPI and ranitidine. Prokinetic may be a consideration, but metoclopramide may be very difficult in this patient with advanced dementia. We will discuss further with the patient's family. Antireflux measures may be helpful as well. ��������������������������������������������� <ELECTRONICALLY SIGNED> ���������������������������������������� By: Terrance Duque MD ��������������������������������������������� 01/27/19 1639 [id number] Terrance Duque MD /nt
== END | disposition home or self-care (01) ==
LOC: GI 08:41
PROVIDERS: Specialist
DX: K22.10 Ulcer of esophagus without bleeding (principal); K44.9 Diaphragmatic hernia without obstruction or gangrene; K22.2 Esophageal obstruction; F41.9 Anxiety disorder, unspecified; G30.9 Alzheimer's disease, unspecified; F02.80 Dementia in other diseases classified elsewhere, unspecified severity, without behavioral disturbance, psychotic disturbance, mood disturbance, and anxiety; Z90.710 Acquired absence of both cervix and uterus; Z90.49 Acquired absence of other specified parts of digestive tract; Z87.440 Personal history of urinary (tract) infections; Z79.899 Other long term (current) drug therapy; Z79.82 Long term (current) use of aspirin; Z98.890 Other specified postprocedural states
CPT/HCPCS: 62110; 62900; 70005